=== PATIENT | female | born 1970 | race Caucasian/White ===

== ENCOUNTER → 2016-07-17 | Outpatient (CLI) | payer OTHER ==
--- NOTE | 2016-07-18 01:16 | REP ---
Clinical: Pain Technique: AP, lateral, bilateral oblique and sunrise views left knee . Findings: The osseous structures and joint spaces are intact and normal. There is no evidence for acute fracture or dislocation. No joint effusion is appreciated. Surrounding soft tissues are unremarkable. No subcutaneous emphysema or radiodense foreign body. Impression: Normal examination. No acute fracture or dislocation. Signed by Yoel Terry MD 07/18/2016 01:08 A
== END ==
LOC: M WUC 14:42
PROVIDERS: ATTEND Nurse Practitioner Family
DX: M25.562 Pain in left knee (principal)

== ENCOUNTER 2017-01-27 06:03 | Day surgery (SDC) | payer OTHER ==
[~2017-01-27] VITALS: Ht 170.2 cm; Wt 90.7 kg
[~2017-01-27 06:03] MED LIST: TRAZ50TA11 PO
[2017-01-27] MEDS ORDERED: LR 1,000 ML IV SCH (06:15)
[2017-01-27] MEDS ORDERED: CLINDAMYCIN 600 MG in APPROPRIATE DILUENT 1 EA IV ONE (06:15)
[2017-01-27] MEDS ORDERED: BUPIVACAINE HCL 0.5% 30 ML VIAL As Ordered ONE (06:37)
[2017-01-27] MEDS ORDERED: LIDOCAINE 2% MDV 20 ML VIAL As Ordered ONE (06:37)
[2017-01-27 06:57] LABS: CONTROL LINE UCG INT CTR LINE PRESENT
[2017-01-27] MEDS ORDERED: fentaNYL 100 MCG/2 ML INJECTION (J3010) As Ordered ONE (07:32)
[2017-01-27] MEDS ORDERED: PROPOFOL 200 MG/20 ML VIAL As Ordered ONE (07:32)
[2017-01-27] MEDS ORDERED: LIDOCAINE 2% INJ 100 MG/5 ML SDV (FOR ANES.) As Ordered ONE (07:32)
[2017-01-27] MEDS ORDERED: dexameTHASONE 4 MG/ML 1ML VIAL (J1100) As Ordered ONE (07:33)
[2017-01-27] MEDS ORDERED: MIDAZOLAM INJ 2 MG/2 ML VIAL (J2250) As Ordered ONE (07:37)
[2017-01-27] MEDS ORDERED: OXYC1TAB23 PO (08:29)
[2017-01-27] MEDS ORDERED: ZOFR4TAB3 PO (08:29)
[2017-01-27 09:47] VITALS: BP 104/56
--- NOTE | 2017-01-27 21:11 | RO ---
DATE OF PROCEDURE: 01/27/2017 PREPROCEDURE DIAGNOSIS: Left plantar fasciitis. POSTPROCEDURE DIAGNOSIS: Left plantar fasciitis. OPERATIVE PROCEDURE: Left endoscopic plantar fascia release. SURGEON: Florentino Guillermo DPM CIRCUIT DESIGN ENGINEER: None. ANESTHESIA: Monitored anesthesia care with preoperative injection of 15 mL of 1:1 mixture of 1% lidocaine and plain 0.50% Marcaine. ESTIMATED BLOOD LOSS: Minimal. MATERIALS: #4-0 nylon. INJECTABLES: 1 mL of Decadron. COMPLICATIONS: None. CONDITION: Stable. 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 She presents today for surgical correction. The patient's side and site were identified and marked in preoperative holding area. Consent was reviewed and obtained. All risks, complications and alternatives to the procedure were explained to the patient in detail. Questions were answered. DESCRIPTION OF OPERATION: The patient was brought to the operating room and placed on operating room table in supine position. Monitored anesthesia care was delivered by the anesthesia team. Preoperative injection of 15 mL of 1:1 mixture of 1% lidocaine plain and 0.50% Marcaine plain were injected into the left foot. The left foot was prepped and draped in normal sterile fashion. The patient received clindamycin preoperatively. Tourniquet was applied to the left ankle and it was inflated at 250 mmHg. A medial stab incision was made near the plantar fascia insertion on the calcaneus with a #15 blade. Hemostat was used to create a plane on the inferior margin of the plantar fascia. Following this, the trocar was inserted through medial to lateral, and a small exit portal was created using a #15 blade. Trocars were removed leaving the cannula in place. The camera was inserted and the lateral aspect of the heel and the plantar fascia was visualized. Using the Endotrac plantar fascia blade, the plantar fascia was released approximately two-thirds of the way across from medial to lateral leaving the lateral one-third intact. Improved tension was noted with flexion of the toes. The site was irrigated with saline. The cannula was removed. Incisions were repaired with #4-0 nylon. 1 mL Decadron was injected. Sterile dressings were applied. Tourniquet was deflated. The patient was brought to post anesthesia care unit (PACU), vitals signs stable, neurovascular status intact. She will be weightbearing as tolerated. She will followup in the office in two days.
== END 2017-01-27 09:47 ==
LOC: M SDC 06:03
PROVIDERS: ATTEND Podiatrist Foot & Ankle Surgery
DX: M72.2 Plantar fascial fibromatosis (principal); M77.32 Calcaneal spur, left foot; G47.00 Insomnia, unspecified; Z88.0 Allergy status to penicillin; Z88.5 Allergy status to narcotic agent; Z79.899 Other long term (current) drug therapy
CPT/HCPCS: 29893; 84703; J1100; J2250; J3010

== ENCOUNTER → 2017-02-05 | Outpatient (REF) | payer OTHER ==
[~2017-02-05] MED LIST changes: +OXYC1TAB23 PO; +ZOFR4TAB3 PO
== END ==
LOC: M SFHCWAGY 15:50
PROVIDERS: ATTEND Nurse Practitioner Family
DX: Z12.13 Encounter for screening for malignant neoplasm of small intestine (principal); Z80.3 Family history of malignant neoplasm of breast

== ENCOUNTER → 2017-02-06 | Outpatient (CLI) | payer OTHER ==
--- NOTE | 2017-02-06 11:04 | REPMRS ---
Patient History The patient states she had a clinical breast exam in 01/2017. Family history of breast cancer in maternal aunt at age 50 or over, breast cancer in maternal grandmother at age 50 or over, and breast cancer in paternal grandmother at age 50 or over. Digital Woman Screen Mammo: February 06, 2017 - Exam #: [id number] Bilateral CC and MLO view(s) were taken. Technologist: Christie Serrano, Technologist Prior study comparison: March 20, 2015, digital woman screen mammo performed at [facility] [employer] [facility]. January 19, 2014, digital woman screen mammo performed at [facility] [employer] to [facility]. FINDINGS: The breast tissue is heterogeneously dense. This may lower the sensitivity of mammography. There has been no change in the appearance of the mammogram from the prior studies. There is a moderate amount of residual fibroglandular tissue which is fairly symmetric. There is no interval development of dominant mass, areas of architectural distortion, or clustered microcalcification typical of malignancy. ASSESSMENT: BI-RADS/ACR category 1 mammogram. Negative. Recommendation Routine screening mammogram in 1 year (for women over age 40). This mammogram was interpreted with the aid of an FDA-approved computer-aided dectection system. Electronically Signed By: Sly Pacheco MD 02/06/17 [id number]
== END ==
LOC: M WHC 09:48
PROVIDERS: ATTEND Nurse Practitioner Family
DX: Z12.31 Encounter for screening mammogram for malignant neoplasm of breast (principal); Z80.3 Family history of malignant neoplasm of breast

== ENCOUNTER → 2017-06-20 | Outpatient (CLI) | payer OTHER ==
[2017-06-20 11:55] LABS: BASO % 0.7 % (0.0-1.0); EOS # 0.2 10^3/uL (0.0-0.50); EOS % 2.7 % (0.0-3.0); IMMATURE GRANULOCYTE % 0.2 % (0-0); LYMPH # 2.3 10^3/uL (1.5-4.5); LYMPH % 37.9 % (24.0-44.0); MEAN CORPUSCULAR HEMOGLOBIN 30.9 pg (27.0-33.0); MEAN CORPUSCULAR HGB CONC 33.9 g/dl (32.0-36.5); MEAN CORPUSCULAR VOLUME 91.4 fl (80.0-96.0); MONO # 0.4 10^3/uL (0.0-0.8); MONO % 7.3 % (0.0-5.0); NEUTROPHILS % 51.2 % (36.0-66.0); PLATELET COUNT, AUTOMATED 319 10^3/uL (150-450); RED CELL DISTRIBUTION WIDTH 12.1 % (11.5-14.5); WHITE BLOOD COUNT 5.9 10^3/uL (4.0-10.0)
[2017-06-20 12:09] LABS: ALBUMIN 3.5 GM/DL (3.2-5.2); ALKALINE PHOSPHATASE 58 U/L (45-117); ALT/SGPT 17 U/L (12-78); ANION GAP 8 MEQ/L (8-16); AST/SGOT 12 U/L (7-37); BILIRUBIN,TOTAL 0.5 MG/DL (0.2-1.0); BLOOD UREA NITROGEN 21 MG/DL (7-18); CALCIUM LEVEL 8.8 MG/DL (8.5-10.1); CARBON DIOXIDE LEVEL 27 MEQ/L (21-32); CHLORIDE LEVEL 107 MEQ/L (98-107); CHOLESTEROL LEVEL 161 MG/DL (<200); CREATININE FOR GFR 0.78 MG/DL (0.55-1.02); GLOMERULAR FILTRATION RATE > 60.0 (>58); GLUCOSE, FASTING 86 MG/DL (70-105); POTASSIUM SERUM 4.5 MEQ/L (3.5-5.1); SODIUM LEVEL 142 MEQ/L (136-145); TRIGLYCERIDES LEVEL 59 MG/DL (<150)
== END ==
LOC: M WUC 08:44
DX: K21.9 Gastro-esophageal reflux disease without esophagitis (principal); Z13.220 Encounter for screening for lipoid disorders; G47.00 Insomnia, unspecified
CPT/HCPCS: 80053

== ENCOUNTER → 2018-05-11 | Outpatient (CLI) | payer OTHER | LOC: M WHC 07:56 | DX: Z12.31 Encounter for screening mammogram for malignant neoplasm of breast (principal); Z80.3 Family history of malignant neoplasm of breast | CPT/HCPCS: 77067 ==

== ENCOUNTER 2018-05-25 21:23 | Emergency (ER) | payer OTHER ==
[2018-05-25 22:05] LABS: BASO # 0.1 10^3/uL (0.0-0.2); BASO % 0.7 % (0.0-1.0); EOS # 0.2 10^3/uL (0.0-0.50); EOS % 3.1 % (0.0-3.0); HEMATOCRIT 36.5 % (36.0-47.0); HEMOGLOBIN 12.3 g/dl (12.0-15.5); IMMATURE GRANULOCYTE % 0.3 % (0-3.0); LYMPH % 38.9 % (24.0-44.0); MEAN CORPUSCULAR HEMOGLOBIN 30.6 pg (27.0-33.0); MEAN CORPUSCULAR HGB CONC 33.7 g/dl (32.0-36.5); MEAN CORPUSCULAR VOLUME 90.8 fl (80.0-96.0); MONO # 0.3 10^3/uL (0.0-0.8); MONO % 4.2 % (0.0-5.0); NEUTROPHILS # 4.1 10^3/uL (1.8-7.7); NEUTROPHILS % 52.8 % (36.0-66.0); PLATELET COUNT, AUTOMATED 298 10^3/uL (150-450); RED BLOOD COUNT 4.02 10^6/uL (4.00-5.40); RED CELL DISTRIBUTION WIDTH 11.9 % (11.5-14.5); WHITE BLOOD COUNT 7.7 10^3/uL (4.0-10.0)
[2018-05-25 22:26] LABS: ANION GAP 8 MEQ/L (8-16); BLOOD UREA NITROGEN 14 MG/DL (7-18); CALCIUM LEVEL 8.8 MG/DL (8.5-10.1); CARBON DIOXIDE LEVEL 28 MEQ/L (21-32); CHLORIDE LEVEL 104 MEQ/L (98-107); CREATININE FOR GFR 0.97 MG/DL (0.55-1.30); GLOMERULAR FILTRATION RATE > 60.0 (>58); GLUCOSE, FASTING 125 MG/DL (70-100); POTASSIUM SERUM 3.9 MEQ/L (3.5-5.1); SODIUM LEVEL 140 MEQ/L (136-145)
[2018-05-25 22:28] LABS: ALBUMIN 3.7 GM/DL (3.2-5.2); ALBUMIN/GLOBULIN RATIO 1.16 (1.00-1.93); ALKALINE PHOSPHATASE 58 U/L (45-117); ALT/SGPT 33 U/L (12-78); AST/SGOT 18 U/L (7-37); BILIRUBIN,DIRECT < 0.1 MG/DL (0.0-0.2); BILIRUBIN,TOTAL 0.2 MG/DL (0.2-1.0); C REACTIVE PROTEIN QUANTITATIV 0.74 MG/DL (0.00-0.30); LIPASE 235 U/L (73-393); TOTAL PROTEIN 6.9 GM/DL (6.4-8.2)
[2018-05-25] MEDS: GI COCKTAIL 50ML BTL(HYOSCYAMINE/MAALOX/LIDOCAINE VISCOUS)(1:3:1) PO (23:00)
[2018-05-25] MEDS: NS 1,000 ML IV (23:00)
[2018-05-25] MEDS: ONDANSETRON 4MG/2ML VIAL (J2405) IV (23:00)
[2018-05-25] MEDS: KETOROLAC 30 MG/ML VIAL (J1885) IV (23:00)
[2018-05-26 00:36] LABS: KETONE, URINE AUTO RFX NEGATIVE (NEGATIVE); LEUKOCYTE ESTERASE UR AUTO RFX NEGATIVE (NEGATIVE); NITRITE, URINE AUTO RFX NEGATIVE (NEGATIVE); RBC, URINE AUTO RFX 4 /HPF (0-3); SPECIFIC GRAVITY UR AUTO RFX 1.014 (1.002-1.035); SQUAM EPITHELIAL CELL UR AURFX 2 /HPF (0-6); WBC, URINE AUTO RFX 1 /HPF (0-3)
[2018-05-26] MEDS: ONDANSETRON 4 MG ORAL DISINTEGRATING TAB (Q0162 PER 1MG) PO (01:09)
== END 2018-05-26 01:09 | disposition home or self-care (01) ==
LOC: M ED 05-26 01:09
DX: R10.30 Lower abdominal pain, unspecified (principal); R11.2 Nausea with vomiting, unspecified; R19.7 Diarrhea, unspecified; K21.9 Gastro-esophageal reflux disease without esophagitis; Z79.899 Other long term (current) drug therapy; Z88.0 Allergy status to penicillin; Z88.5 Allergy status to narcotic agent; Z87.891 Personal history of nicotine dependence
CPT/HCPCS: J2405

== ENCOUNTER → 2018-11-19 | Outpatient (CLI) | payer BC ==
[~2018-11-19] MED LIST changes: +OMEP40CA2; +PROHANCE 279.3MG/ML 15ML VIAL (A9576) As Ordered ONE; +TRAZ-252 PO; -TRAZ50TA11 PO; +ZOFR4TAB14 PO; -ZOFR4TAB3 PO; +ZOLP10TA2
--- NOTE | 2018-11-19 15:21 | REP ---
MRI BILATERAL BREAST WITH AND WITHOUT CONTRAST: HISTORY: Family history of breast cancer with dense breasts. Comparison mammogram 05/11/2018. Multiple sequences obtained in the axial, coronal and sagittal planes prior to and following the intravenous administration of 15 mL ProHance. Pre- and post contrast dynamic axial T1 fat sat images are performed. Images are evaluated in the [employer] software including subtraction images, color overlay and CAD images as well as MIP reconstruction images. There is moderate fibroglandular tissue diffusely bilaterally. There is moderate background parenchymal enhancement. Multiple small cysts are scattered throughout both breasts. No suspicious enhancing mass is seen and there is no morphologic abnormality. No axillary adenopathy is seen. Incidental note is made of a 9 mm cyst in the anterior left lobe of the liver. IMPRESSION: BIRADS category 2 benign bilateral breast MRI. Moderate background parenchymal enhancement diffusely bilaterally without a suspicious mass or morphologic abnormality. Yearly supplemental screening MRI of the breasts is recommended for patient's with dense breast and lifetime risk of breast cancer of 20% or greater. Electronically Signed by Sly Pacheco MD 11/19/2018 04:38 P
== END ==
LOC: M RAD 09:48
PROVIDERS: ATTEND Nurse Practitioner Family
DX: Z91.89 Other specified personal risk factors, not elsewhere classified (principal); Z80.3 Family history of malignant neoplasm of breast; N60.11 Diffuse cystic mastopathy of right breast; N60.12 Diffuse cystic mastopathy of left breast; K76.89 Other specified diseases of liver
CPT/HCPCS: A9576; C8908

== ENCOUNTER → 2019-07-14 | Outpatient (CLI) | payer BC ==
[~2019-07-14] MED LIST changes: -OMEP40CA2; +OMEP40CA97; -PROHANCE 279.3MG/ML 15ML VIAL (A9576) As Ordered ONE
--- NOTE | 2019-07-14 16:49 | REPMRS ---
Patient History The patient states she had a clinical breast exam in 06/2019. Family history of breast cancer at age 50 or over in maternal grandmother, breast cancer under age 50 in paternal grandmother, pancreatic cancer at age 50 or over in maternal aunt, prostate cancer at age 70 in father. No Hormone Replacement Therapy Digital Woman Screen Mammo: July 14, 2019 - Exam #: [id number] Bilateral CC and MLO view(s) were taken. Technologist: Christie Serrano, Technologist Prior study comparison: May 11, 2018, bilateral digital woman screen mammo performed at [facility]. February 06, 2017, digital woman screen mammo performed at [facility]. March 20, 2015, digital woman screen mammo performed at [facility]. FINDINGS: The breast tissue is heterogeneously dense. This may lower the sensitivity of mammography. There is a well-circumscribed 5 mm superficial nodule in the lateral aspect of the left breast superiorly. This merits further evaluation. It does not appear to have been present previously. There is a moderate amount of heterogeneously dense fibroglandular tissue which is fairly symmetric. There is no interval development of dominant mass, architectural distortion, or grouped microcalcification typical of malignancy. There has been no change in the appearance of the mammogram from the prior studies. 3-D tomosynthesis shows no additional findings. Assessment: BI-RADS/ACR category 0 mammogram, Incomplete: Need additional imaging evaluation and/or prior mammograms for comparison. Recommendation Ultrasound and special view mammogram of the left breast. This patient's Lifetime Breast Cancer RIsk is estimated at 18.1 %. This mammogram was interpreted with the aid of an FDA-approved computer-aided dectection system. Electronically Signed By: Castro Manriquez MD 07/14/19 [id number]
== END ==
LOC: M WHC 13:43
PROVIDERS: ATTEND Nurse Practitioner Family
DX: Z12.31 Encounter for screening mammogram for malignant neoplasm of breast (principal)

== ENCOUNTER → 2019-07-14 | Outpatient (REF) | payer BC | LOC: M SFHCWAGY 17:04 | PROVIDERS: ATTEND Nurse Practitioner Family | DX: Z12.4 Encounter for screening for malignant neoplasm of cervix (principal) | CPT/HCPCS: 87624; G0123 ==

== ENCOUNTER → 2019-07-23 | Outpatient (CLI) | payer BC ==
--- NOTE | 2019-07-23 15:13 | REP ---
DIAGNOSTIC MAMMOGRAM LEFT BREAST WITH LEFT BREAST ULTRASOUND: Multiple spot compression views of the left breast are performed and correlated with the recent mammogram of 07/14/2019. These confirm the presence of a smoothly marginated nodule in the upper outer quadrant of the left breast close to the nipple. It measures 5 mm in diameter. Real-time sonographic evaluation of the left breast performed in the upper outer quadrant to evaluate the smoothly marginated 5 mm nodule on the mammogram. At 12-o'clock position, there is a cyst which is simple and benign, measuring 6 mm in diameter. At 1-o'clock position, hypoechoic nodule appears to contain internal echoes and probably a few septations. It measures 7 x 4 x 7 mm. This should be sampled. A hypoechoic structure at 12-o'clock is oval in shape and does not represent a simple cyst. This measures 6 x 4 x 5 mm. This may be solid. This should be sampled. IMPRESSION: BIRADS 4: BI-RADS/ACR category 4 mammogram. Suspicious Abnormality - biopsy should be considered. ACR 4 suspicious. Smoothly marginated nodule confirmed in the upper outer quadrant of the left breast near the nipple measuring 5 mm in diameter. By ultrasound, there are three nodular structures in that region. One is a simple cyst. At 1-o'clock, there is a septated hypoechoic nodule which may represent a complex cyst measuring 7 x 4 x 7 mm. Recommend ultrasound-guided aspiration/sampling. At 12-o'clock, there is a hypoechoic nodule which may be solid measuring 6 x 4 x 5 mm. Recommend ultrasound-guided biopsy. Patient letter being requested is M4. Electronically Signed by Sly Pacheco MD 07/23/2019 03:41 P
== END ==
LOC: M RAD 12:55
PROVIDERS: ATTEND Nurse Practitioner Family
DX: D49.3 Neoplasm of unspecified behavior of breast (principal)

== ENCOUNTER → 2019-08-04 | Outpatient (CLI) | payer BC ==
[~2019-08-04] MED LIST changes: +LIDOCAINE 1% MDV 20ML VIAL As Ordered ONE
--- NOTE | 2019-08-04 10:32 | REP ---
Digital diagnostic unilateral left breast mammography two views. History: Marker clip placement views. The patient is status post ultrasound-guided needle biopsy procedure. Comparison mammography July 14, 2019 and July 23, 2019. The mammogram showed a 5 mm nodular density in the retroareolar region upper outer quadrant. The original ultrasound showed two hypoechoic lesions for which ultrasound guided biopsy was recommended. However, on today's pre-procedure ultrasound one of these targets was eliminated as it appeared sonographically as two adjacent simple cysts with a benign appearance. One target was biopsied under ultrasound guidance and a marker clip was placed. Mammographic findings: Marker clip is seen in the retroareolar region at approximately the 12 to 1 o'clock position. There is no evidence hematoma. This is somewhat medial to the nodular density which was seen mammographically. This nodular density is most likely one of the patient's breast cysts. No other sonographically suspicious finding. Impression: Marker clip is seen in place. 5 mm nodular opacity is seen separate from the clip. This is felt to correspond with one of the patient's breast cysts. 6 month followup mammography recommended. Electronically Signed by Cole Manriquez MD 08/04/2019 04:06 P
[2019-08-04 10:43] VITALS: BP 107/67
--- NOTE | 2019-08-04 16:13 | REP ---
ULTRASOUND GUIDED LEFT BREAST BIOPSY The procedure was performed under the direct supervision of Dr. Manriquez The patient has a history of a 7 x 4 x 7 mm septated hypoechoic nodule in the 1 o'clock position of the left breast. The patient also has a 6 x 4 x 5 mm hypoechoic nodule in the 12 o'clock position of the left breast. These were seen on a previous ultrasound dated 07/23/2019. The risks and benefits of the procedure were explained to the patient and informed consent was obtained. On the preliminary ultrasound the lesion at the 1 o'clock position appeared, sonographically, as two adjacent simple cyst with benign appearance. Therefore, only the lesion at the 12 o'clock position will be biopsied today. The left breast nodule was localized using ultrasound guidance. The skin was prepped and draped in a sterile fashion. 1% Xylocaine was used as a local anesthetic. Using ultrasound guidance the 14 gauge coaxial needle biopsy system was inserted and advanced into the nodule. Six core biopsy samples were obtained and sent to lab. A marker clip was placed at the biopsy site. The patient tolerated the procedure well and there were no immediate complications. After the appropriate amount of monitored convalescence the patient was discharged from the department. Electronically Signed by BRODY Rodriguez 08/04/2019 03:44 P Electronically Signed by Cole Manriquez MD 08/04/2019 04:04 P
== END ==
LOC: M IRPRO 08:45
PROVIDERS: ATTEND Surgery
DX: N63.21 Unspecified lump in the left breast, upper outer quadrant (principal); N63.22 Unspecified lump in the left breast, upper inner quadrant; N60.12 Diffuse cystic mastopathy of left breast

== ENCOUNTER → 2019-12-28 | Outpatient (CLI) | payer BC ==
[~2019-12-28] MED LIST changes: -LIDOCAINE 1% MDV 20ML VIAL As Ordered ONE; +PROHANCE 279.3MG/ML 15ML VIAL As Ordered ONE
--- NOTE | 2019-12-29 07:28 | REP ---
BILATERAL BREAST MRI WITH AND WITHOUT CONTRAST: FAMILY HISTORY: Breast cancer in maternal grandmother and paternal grandmother. [facility] lifetime risk of breast cancer 18.1%. COMPARISON: MRI 11/19/2018 and mammogram 07/14/2019. TECHNIQUE: Multiple sequences obtained in the axial, coronal, and sagittal planes prior to and following the intravenous administration of 15 mL ProHance. Images are evaluated in the [employer] software, including dynamic post IV gadolinium axial T1 fat-sat images, subtraction images, color overlay images, CAD imaging, and MIP reconstruction images. Once again, there are multiple subcentimeter cysts scattered throughout both breasts. A couple of larger cysts are seen in the left breast; largest is inferomedially and measures 1.2 cm in maximum diameter. Moderate fibroglandular tissue is seen bilaterally. There is mild to moderate background parenchymal enhancement. There is no axillary adenopathy. There is no suspicious enhancing mass or morphologic abnormality. IMPRESSION: BI-RADS category 2, benign bilateral breast MRI. Small cysts scattered throughout both breasts with no suspicious enhancing mass or morphologic abnormality. Electronically Signed by Sly Pacheco MD 12/30/2019 09:14 A
== END ==
LOC: M RAD 12:24
PROVIDERS: ATTEND Nurse Practitioner Family
DX: N60.11 Diffuse cystic mastopathy of right breast (principal); N60.12 Diffuse cystic mastopathy of left breast; Z80.3 Family history of malignant neoplasm of breast
CPT/HCPCS: A9576; C8908

== ENCOUNTER → 2020-03-03 | Outpatient (CLI) | payer BC ==
[~2020-03-03] MED LIST changes: -PROHANCE 279.3MG/ML 15ML VIAL As Ordered ONE
--- NOTE | 2020-03-23 15:52 | REP ---
LEFT BREAST MAMMOGRAM WITH 3D TOMOSYNTHESIS COMPARISON: 08/04/2019 as well as other prior exams. The patient had a biopsy of a left retroareolar nodule 08/04/2019 which was benign. Family history of breast cancer in material grandmother and paternal grandmother. [facility] lifetime risk of breast cancer 17.8%. FINDINGS: MLO and CC views of the left breast were performed with 3D tomosynthesis. An additional left ML view was also performed. Comparison made with several prior studies. The study of 07/14/2019 showed a 5 mm smoothly marginated nodule in the lateral anterior left breast. Ultrasound and diagnostic mammography 07/23/2019 showed two cysts as well as a complex cyst or solid nodule. The complex lesion was biopsied with ultrasound guidance. Todays images show a biopsy clip in the left retroareolar region at the site of the benign biopsy. The previously noted 5 mm smoothly marginated nodule in the anterolateral left breast is no longer visualized. Moderate fibroglandular densities again seen in the left breast. Volpara breast density is C. There is no new mass or clustered microcalcifications. IMPRESSION: ACR 2 benign. No new mass or clustered microcalcifications. The 5 mm smoothly marginated nodule in the anterolateral left breast has resolved. Biopsy marking clip in the left retroareolar region is again noted at the site of a benign biopsy 08/04/2019. No new findings. Recommend follow up bilateral mammogram in June 2020. This mammogram was interpreted with the aid of an FDA approved computer aided detection system. The patient states that her last clinical breast exam was December 2019. Send letter 1. NARENDRA
== END ==
LOC: M WHC 15:06
PROVIDERS: ATTEND Surgery
DX: N63.25 Unspecified lump in the left breast, overlapping quadrants (principal); Z80.3 Family history of malignant neoplasm of breast
CPT/HCPCS: 77065; G0279

== ENCOUNTER → 2020-08-02 | Outpatient (CLI) | payer BC ==
--- NOTE | 2020-08-02 10:53 | REPMRS ---
Patient History The patient states she had a clinical breast exam in 07/2020. Family history of breast cancer at age 50 or over in maternal grandmother, breast cancer under age 50 in paternal grandmother, pancreatic cancer at age 50 or over in maternal aunt, prostate cancer at age 70 in father. Benign US guided breast biopsy of the left breast, August 04, 2019. Taking hormonal contraceptives for 1 year 1 month. Digital Woman Screen Mammo: August 02, 2020 - Exam #: [id number] Bilateral CC and MLO view(s) were taken. Technologist: Christie Serrano, Technologist Prior study comparison: March 03, 2020, left breast diagnostic unilateral mammo performed at [facility]. December 28, 2019, bilateral breast MRI, performed at [facility]. August 04, 2019, left breast digital mammo diagnostic unilateral, performed at [facility]. July 14, 2019, bilateral digital woman screen mammo performed at [facility]. May 11, 2018, bilateral digital woman screen mammo performed at [facility]. FINDINGS: The breast tissue is heterogeneously dense. This may lower the sensitivity of mammography. The Volpara volumetric breast density category is: C. There are two nodular densities are seen in the left breast upper outer quadrant anterior 3rd and central medial aspect of the left breast middle 3rd. Both of these are visible on MRI study from December 28, 2019 and were felt to be benign cysts. They are unchanged from the MRI study. The each measured 12 mm. There is a moderate amount of heterogeneously dense fibroglandular tissue which is fairly symmetric. There is no other interval development of dominant mass, architectural distortion, or grouped microcalcification typical of malignancy. There has been no other change in the appearance of the mammogram from the prior studies. 3-D tomosynthesis shows no additional findings. Assessment: BI-RADS/ACR category 2 mammogram. Benign Findings. Recommendation Routine screening mammogram of both breasts in 1 year (for women over age 40). This patient's [facility] Lifetime Breast Cancer RIsk is estimated at 17.5 %. This mammogram was interpreted with the aid of an FDA-approved computer-aided dectection system. Electronically Signed By: Castro Manriquez MD 08/02/20 [id number]
== END ==
LOC: M WHC 09:42
PROVIDERS: ATTEND Nurse Practitioner Family
DX: Z12.31 Encounter for screening mammogram for malignant neoplasm of breast (principal)

== ENCOUNTER → 2020-08-11 | Outpatient (CLI) | payer BC ==
--- NOTE | 2020-08-11 19:11 | REP ---
INDICATION: N93.9 ABNORMAL UTERINE BLEEDING. COMPARISON: 05/25/2018 TECHNIQUE: Transabdominal and endovaginal probe pelvic ultrasound FINDINGS: Bladder is well filled for this examination. Measures 9.9 by 7.7 by 10.9 cm. Six calculated volume 343 cc. The uterus is anteverted and measures 10 x 4.6 x 5.7 cm. Uterine echotexture is somewhat heterogeneous. No discrete or measurable fibroids.. There is a central endometrial echogenic stripe which has a thickness of 4 mm on the be probe. No fluid the endometrial cavity or endocervical canal. No fluid in the cul-de-sac. The right ovary is 3 x 1.3 x 2.9 cm with Doppler tracings show resistive index 0.67, no torsion. The right ovary has a dominant follicle at 2.1 x 1.5 x 1.2 cm. (Cyst defined at 2.5 cm). Left ovary 2.1 x 0.9 x 2 cm. No pelvic free fluid. IMPRESSION: Anteverted uterus which is somewhat heterogeneous in echotexture but no discrete measurable fibroid. Uterine contour fairly smooth. Uterus 10 x 4.6 x 5.7 cm. Endometrium unremarkable. Dominant follicle right ovary 2.1 x 1.2 x 1.5 cm, is not cyst which is defined at 2.5 cm. No pelvic free fluid. No left adnexal mass. <Electronically signed by Daniel Carrillo > 08/11/20 [id number]
== END ==
LOC: M WHC 13:50
PROVIDERS: ATTEND Nurse Practitioner Family
DX: N93.9 Abnormal uterine and vaginal bleeding, unspecified (principal)

== ENCOUNTER → 2021-03-16 | Outpatient (CLI) | payer BC ==
[~2021-03-16] MED LIST changes: +E-Z-GAS II EFFERVESCENT PACKET (SODIUM BICARB./CITRIC ACID/SIMETHICONE) As Ordered ONE; +E-Z-HD 98% w/w 340GM SUSP BTL As Ordered ONE; +E-Z-PAQUE 96% w/w SUSP 176GM BTL As Ordered ONE; +OMEP40CA4; -OMEP40CA97
[2021-03-16 08:25] LABS: HEMOGLOBIN 12.5 g/dl (12.0-15.5); MEAN CORPUSCULAR HEMOGLOBIN 30.9 pg (27.0-33.0); MEAN CORPUSCULAR HGB CONC 33.8 g/dl (32.0-36.5); MEAN CORPUSCULAR VOLUME 91.4 fl (80.0-96.0); PLATELET COUNT, AUTOMATED 273 10^3/uL (150-450); RED BLOOD COUNT 4.05 10^6/uL (4.00-5.40); WHITE BLOOD COUNT 4.7 10^3/uL (4.0-10.0)
[2021-03-16 09:02] LABS: ALBUMIN 3.3 GM/DL (3.2-5.2); ALT/SGPT 22 U/L (12-78); BILIRUBIN,TOTAL 0.2 MG/DL (0.2-1.0); BLOOD UREA NITROGEN 12 MG/DL (7-18); CALCIUM LEVEL 8.6 MG/DL (8.5-10.1); CARBON DIOXIDE LEVEL 27 MEQ/L (21-32); CHLORIDE LEVEL 110 MEQ/L (98-107); CHOLESTEROL LEVEL 173 MG/DL (<200); CHOLESTEROL RISK RATIO 2.276 (<5); GLOMERULAR FILTRATION RATE > 60.0 (>58); GLUCOSE, FASTING 99 MG/DL (70-100); HDL CHOLESTEROL 76 MG/DL (>40); LDL CHOLESTEROL 78 MG/DL (<100); NON-HDL-C 97 MG/DL; POTASSIUM SERUM 4.3 MEQ/L (3.5-5.1); SODIUM LEVEL 142 MEQ/L (136-145); TOTAL PROTEIN 6.7 GM/DL (6.4-8.2); TRIGLYCERIDES LEVEL 97 MG/DL (<150)
--- NOTE | 2021-03-16 16:15 | REP ---
INDICATION: RUQ PAIN HAS LABS FIRST. COMPARISON: None. TECHNIQUE: The procedure was performed under the direct supervision of Dr. Manriquez. The images were reviewed with Dr. Manriquez. Liquid barium and gas producing crystals were given in the erect position as well as liquid barium in the prone oblique position in order to perform a double contrast upper GI examination. A combination of fluoroscopy, spot films and last image hold technology was utilized. 1.4 minutes of fluoro time was utilized for this procedure. FINDINGS: The rv service technician film shows no organomegaly or pathological masses. The intestinal gas pattern is non-specific. There are surgical clips noted in the right upper quadrant. The oral and pharyngeal stages of deglutition are unremarkable. During esophageal transport there are tertiary waves demonstrated. There is no esophagitis, stricture, mucosal ring or hiatal hernia. There is gastroesophageal reflux demonstrated to above the level of the shanika. Within the stomach there are multiple sub cm polyps identified. The stomach is otherwise unremarkable. The duodenal benitez are normally outlined. The mucosal folds are smooth and regular. There is no duodenitis pancreatitis peptic ulcer disease or neoplasm. The visualized portion of the proximal small bowel appears normal in course and caliber. IMPRESSION: 1. Tertiary waves. 2. There is gastroesophageal reflux demonstrated to above the level of the shanika. 3. There are multiple sub cm polyps in the stomach. . <Electronically signed by Tanner Meehan > 03/16/21 [id number] <Electronically signed by Castro Manriquez > 03/16/21 [id number]
== END ==
LOC: M LAB 07:41
PROVIDERS: ATTEND Family Medicine
DX: K21.9 Gastro-esophageal reflux disease without esophagitis (principal); K31.7 Polyp of stomach and duodenum; R10.11 Right upper quadrant pain

== ENCOUNTER → 2021-07-06 | Outpatient (CLI) | payer BC ==
[~2021-07-06] MED LIST changes: +AMIT25TA17 PO; +DESO1TAB27 PO; -E-Z-GAS II EFFERVESCENT PACKET (SODIUM BICARB./CITRIC ACID/SIMETHICONE) As Ordered ONE; -E-Z-HD 98% w/w 340GM SUSP BTL As Ordered ONE; -E-Z-PAQUE 96% w/w SUSP 176GM BTL As Ordered ONE
== END ==
LOC: M LABSMTC 09:42
PROVIDERS: ATTEND Anesthesiology
DX: Z01.812 Encounter for preprocedural laboratory examination (principal); Z20.822 Contact with and (suspected) exposure to COVID-19

== ENCOUNTER → 2021-08-03 | Outpatient (CLI) | payer OTHER | LOC: M WHC 09:23 | PROVIDERS: ATTEND Nurse Practitioner Women's Health | DX: Z12.31 Encounter for screening mammogram for malignant neoplasm of breast (principal); N60.12 Diffuse cystic mastopathy of left breast ==

== ENCOUNTER → 2021-09-26 | Outpatient (CLI) | payer OTHER ==
[~2021-09-26] MED LIST changes: -OMEP40CA4; +OMEP40CA4 PO
== END ==
LOC: M LABSMTC 09:09
PROVIDERS: ATTEND Anesthesiology
DX: Z01.818 Encounter for other preprocedural examination (principal); Z11.52 Encounter for screening for COVID-19

== ENCOUNTER 2021-10-01 06:38 | Day surgery (SDC) | payer OTHER ==
[~2021-10-01] VITALS: Ht 170.2 cm; Wt 87.9 kg
[~2021-10-01 06:38] MED LIST changes: +NS 1,000 ML IV ONE
[2021-10-01] MEDS ORDERED: propofoL 200 MG/20 ML VIAL As Ordered ONE ×3 (07:29→07:46)
[2021-10-01] MEDS ORDERED: LIDOCAINE 2% 100MG/5ML SDV (FOR ANES.) As Ordered ONE (07:30)
[2021-10-01] MEDS ORDERED: ePHEDrine SULFATE 25 MG/5 ML(5MG/ML) SYRINGE As Ordered ONE (07:48)
[2021-10-01 08:30] VITALS: BP 92/57
== END 2021-10-01 08:40 | disposition home or self-care (01) ==
LOC: M OPP 06:38
PROVIDERS: ATTEND Internal Medicine Gastroenterology
DX: Z12.11 Encounter for screening for malignant neoplasm of colon (principal); K62.1 Rectal polyp; K64.0 First degree hemorrhoids; K31.89 Other diseases of stomach and duodenum; K31.7 Polyp of stomach and duodenum; R12 Heartburn; Z79.899 Other long term (current) drug therapy; Z88.0 Allergy status to penicillin; Z88.5 Allergy status to narcotic agent

== ENCOUNTER → 2022-01-07 | Outpatient (CLI) | payer OTHER ==
[~2022-01-07] MED LIST changes: -NS 1,000 ML IV ONE; +PROHANCE 279.3MG/ML 15ML VIAL ONE; +PROHANCE 279.3MG/ML 5ML VIAL ONE
== END ==
LOC: M PLAIMG 08:55
PROVIDERS: ATTEND Nurse Practitioner Women's Health
DX: N60.12 Diffuse cystic mastopathy of left breast (principal)
CPT/HCPCS: A9576; C8908

== ENCOUNTER 2022-02-12 19:25 | Emergency (ER) | payer OTHER ==
[~2022-02-12] VITALS: Ht 170.2 cm; Wt 90.9 kg
[2022-02-12 19:25] VITALS: BP 125/75
[~2022-02-12 19:25] MED LIST changes: -PROHANCE 279.3MG/ML 15ML VIAL ONE; -PROHANCE 279.3MG/ML 5ML VIAL ONE
[2022-02-12] MEDS ORDERED: TEMA7.5C (21:38)
== END 2022-02-12 22:34 | disposition home or self-care (01) ==
LOC: M ED 19:25
DX: S60.032A Contusion of left middle finger without damage to nail, initial encounter (principal); W22.8XXA Striking against or struck by other objects, initial encounter; Y99.0 Civilian activity done for income or pay; Z88.0 Allergy status to penicillin; Z88.5 Allergy status to narcotic agent; Z79.899 Other long term (current) drug therapy

== ENCOUNTER → 2022-08-06 | Outpatient (CLI) | payer OTHER ==
[~2022-08-06] MED LIST changes: +TEMA7.5C
== END ==
LOC: M WHC 09:28
PROVIDERS: ATTEND Nurse Practitioner Women's Health
DX: Z12.31 Encounter for screening mammogram for malignant neoplasm of breast (principal)

== ENCOUNTER → 2022-08-29 | Outpatient (CLI) | payer OTHER ==
[2022-08-29 10:01] LABS: BASO # 0.1 10^3/uL (0.0-0.2); EOS # 0.1 10^3/uL (0.0-0.5); HEMATOCRIT 40.7 % (36.0-47.0); HEMOGLOBIN 13.6 g/dl (12.0-15.5); LYMPH % 33.6 % (24.0-44.0); MEAN CORPUSCULAR HEMOGLOBIN 31.3 pg (27.0-33.0); MEAN CORPUSCULAR HGB CONC 33.4 g/dl (32.0-36.5); MEAN CORPUSCULAR VOLUME 93.6 fl (80.0-96.0); MONO # 0.3 10^3/uL (0.0-0.8); MONO % 5.4 % (2.0-8.0); NEUTROPHILS # 3.4 10^3/uL (1.5-8.5); NEUTROPHILS % 57.8 % (36.0-66.0); PLATELET COUNT, AUTOMATED 286 10^3/uL (150-450); RED BLOOD COUNT 4.35 10^6/uL (4.00-5.40); WHITE BLOOD COUNT 5.9 10^3/uL (4.0-10.0)
[2022-08-29 10:46] LABS: ALKALINE PHOSPHATASE 70 U/L (46-116); ALT/SGPT 18 U/L (7.0-40); AST/SGOT 16 U/L (<34); BILIRUBIN,TOTAL 0.4 MG/DL (0.3-1.2); BLOOD UREA NITROGEN 18 MG/DL (9-23); CARBON DIOXIDE LEVEL 27 MMOL/L (20-31); CHLORIDE LEVEL 103 MMOL/L (98-107); CHOLESTEROL LEVEL 203 MG/DL (<200); CHOLESTEROL RISK RATIO 2.59 (<5); CREATININE FOR GFR 0.95 MG/DL (0.55-1.30); GLOMERULAR FILTRATION RATE > 60.0 (>51); GLUCOSE, FASTING 95 MG/DL (60-100); HDL CHOLESTEROL 78.3 MG/DL (>40); LDL CHOLESTEROL 110.5 MG/DL (<100); NON-HDL-C 124.7 MG/DL; POTASSIUM SERUM 4.2 MMOL/L (3.5-5.1); SODIUM LEVEL 139 MMOL/L (136-145); TOTAL PROTEIN 7.4 G/DL (5.7-8.2); TRIGLYCERIDES LEVEL 71 MG/DL (<150)
== END ==
LOC: M WUC 08:22
PROVIDERS: ATTEND Family Medicine
DX: Z00.00 Encounter for general adult medical examination without abnormal findings (principal)

== ENCOUNTER → 2022-10-14 | Outpatient (REF) | payer OTHER | LOC: M SFHCWAGY 10:40 | PROVIDERS: ATTEND Nurse Practitioner Family | DX: Z12.4 Encounter for screening for malignant neoplasm of cervix (principal); Z77.9 Other contact with and (suspected) exposures hazardous to health | CPT/HCPCS: 87624; G0123 ==

== ENCOUNTER → 2022-12-10 | Outpatient (CLI) | payer OTHER | LOC: M WUC 11:24 | PROVIDERS: ATTEND Physician Assistant | DX: S93.402A Sprain of unspecified ligament of left ankle, initial encounter (principal); S93.602A Unspecified sprain of left foot, initial encounter; W18.30XA Fall on same level, unspecified, initial encounter; Y92.009 Unspecified place in unspecified non-institutional (private) residence as the place of occurrence of the external cause ==

== ENCOUNTER → 2023-01-20 | Outpatient (CLI) | payer OTHER ==
[~2023-01-20] MED LIST changes: -AMIT25TA17 PO; +AMIT25TA19 PO; +PROHANCE 279.3MG/ML 15ML VIAL As Ordered ONE; +PROHANCE 279.3MG/ML 5ML VIAL As Ordered ONE
== END ==
LOC: M RAD 09:51
PROVIDERS: ATTEND Nurse Practitioner Women's Health
DX: R92.2 Inconclusive mammogram (principal); Z12.39 Encounter for other screening for malignant neoplasm of breast; Z80.3 Family history of malignant neoplasm of breast
CPT/HCPCS: A9576; C8908

== ENCOUNTER → 2023-08-14 | Outpatient (CLI) | payer OTHER ==
[~2023-08-14] MED LIST changes: -PROHANCE 279.3MG/ML 15ML VIAL As Ordered ONE; -PROHANCE 279.3MG/ML 5ML VIAL As Ordered ONE
== END ==
LOC: M WHC 13:39
PROVIDERS: ATTEND Nurse Practitioner Women's Health
DX: Z12.31 Encounter for screening mammogram for malignant neoplasm of breast (principal)

== ENCOUNTER → 2024-02-12 | Outpatient (CLI) | payer OTHER, BC ==
[~2024-02-12] MED LIST changes: +PROHANCE 279.3MG/ML 15ML VIAL As Ordered ONE; +PROHANCE 279.3MG/ML 5ML VIAL As Ordered ONE
== END ==
LOC: M RAD 09:59
PROVIDERS: ATTEND Nurse Practitioner Women's Health
DX: R92.2 Inconclusive mammogram (principal); Z91.89 Other specified personal risk factors, not elsewhere classified; Z80.3 Family history of malignant neoplasm of breast

== ENCOUNTER → 2024-02-20 | Outpatient (CLI) | payer OTHER, BC ==
[~2024-02-20] MED LIST changes: -PROHANCE 279.3MG/ML 15ML VIAL As Ordered ONE; -PROHANCE 279.3MG/ML 5ML VIAL As Ordered ONE
[2024-02-20 13:34] LABS: BASO # 0.1 10^3/uL (0.0-0.2); BASO % 1.2 % (0.0-1.0); EOS # 0.2 10^3/uL (0.0-0.5); EOS % 2.7 % (0.0-3.0); HEMATOCRIT 41.3 % (36.0-47.0); HEMOGLOBIN 13.5 g/dl (12.0-15.5); LYMPH # 2.2 10^3/uL (1.5-5.0); LYMPH % 36.7 % (24.0-44.0); MEAN CORPUSCULAR HEMOGLOBIN 31.4 pg (27.0-33.0); MEAN CORPUSCULAR HGB CONC 32.7 g/dl (32.0-36.5); MONO # 0.4 10^3/uL (0.0-0.8); MONO % 6.3 % (2.0-8.0); NEUTROPHILS # 3.2 10^3/uL (1.5-8.5); NEUTROPHILS % 52.8 % (36.0-66.0); PLATELET COUNT, AUTOMATED 303 10^3/uL (150-450)
[2024-02-20 13:57] LABS: ALBUMIN 3.9 G/DL (3.2-5.2); ALKALINE PHOSPHATASE 72 U/L (46-116); ALT/SGPT 14 U/L (7.0-40); AST/SGOT 13 U/L (<34); BILIRUBIN,TOTAL 0.6 MG/DL (0.3-1.2); BLOOD UREA NITROGEN 15 MG/DL (9-23); CALCIUM LEVEL 9.6 MG/DL (8.5-10.1); CARBON DIOXIDE LEVEL 30 MMOL/L (20-31); CHLORIDE LEVEL 107 MMOL/L (98-107); CHOLESTEROL LEVEL 213 MG/DL (<200); CHOLESTEROL RISK RATIO 3.66 (<5); CREATININE FOR GFR 0.87 MG/DL (0.55-1.30); GLOMERULAR FILTRATION RATE > 60.0 (>51); GLUCOSE, FASTING 97 MG/DL (60-100); HDL CHOLESTEROL 58.1 MG/DL (>40); LDL CHOLESTEROL 136.3 MG/DL (<100); NON-HDL-C 154.9 MG/DL; POTASSIUM SERUM 4.9 MMOL/L (3.5-5.1); SODIUM LEVEL 140 MMOL/L (136-145); TOTAL PROTEIN 7.4 G/DL (5.7-8.2); TRIGLYCERIDES LEVEL 93 MG/DL (<150)
== END ==
LOC: M WUC 09:40
PROVIDERS: ATTEND Family Medicine
DX: Z00.00 Encounter for general adult medical examination without abnormal findings (principal)